=== PATIENT | female | born 2000 | race Caucasian/White ===

== ENCOUNTER 2020-08-18 17:36 | Observation (INO) | payer OTHER ==
[~2020-08-18] VITALS: Ht 167.6 cm; Wt 74.8 kg
== END 2020-08-18 20:45 | disposition home or self-care (01) ==
LOC: SPU 17:36
PROVIDERS: ADMIT Specialist; ATTEND Specialist
DX: O62.9 Abnormality of forces of labor, unspecified (principal); Z3A.40 40 weeks gestation of pregnancy
CPT/HCPCS: 81002; G0378